=== PATIENT | male | born 1970 | race Caucasian/White ===

== ENCOUNTER → 2023-09-07 | Outpatient (CLI) | payer BC | LOC: RAD 13:54 | DX: M54.42 Lumbago with sciatica, left side (principal) ==

== ENCOUNTER → 2023-10-12 | Outpatient (CLI) | payer BC | LOC: RAD 16:57 | DX: M51.16 Intervertebral disc disorders with radiculopathy, lumbar region (principal); M24.28 Disorder of ligament, vertebrae; M48.061 Spinal stenosis, lumbar region without neurogenic claudication; M51.17 Intervertebral disc disorders with radiculopathy, lumbosacral region; M47.27 Other spondylosis with radiculopathy, lumbosacral region; M48.07 Spinal stenosis, lumbosacral region ==